=== PATIENT | female | born 1990 | race Asian ===

== ENCOUNTER 2021-12-02 18:37 | Emergency (ER) | payer OTHER, BC ==
[2021-12-02 19:12] VITALS: BP 148/76; PULSE 84; TEMP 98.2; BMI 27.2
[2021-12-02] MEDS ORDERED: DIPHTH,PERTUSS(ACELL),TET 0.5 ML DISP.SYRIN IM ONE ×2 (19:51→20:35)
== END 2021-12-02 20:47 | disposition home or self-care (01) ==
LOC: JER 18:37 → JERFT 18:37
PROC: 3E0234Z Introduction of Serum, Toxoid and Vaccine into Muscle, Percutaneous Approach (ICD-10-PCS; principal; 2021-12-02)
DX: M25.521 Pain in right elbow (principal); V13.4XXA Pedal cycle driver injured in collision with car, pick-up truck or van in traffic accident, initial encounter
CPT/HCPCS: 73070-TC-RT-FY; 90715; 99284-25